=== PATIENT | male | born 1945 | race Caucasian/White ===

== ENCOUNTER → 2020-07-18 | Outpatient (CLI) | payer MEDICARE ==
[2020-07-18 10:38] LABS: Ionized Calcium 5.5 mg/dL (4.5-5.3)
[2020-07-19 09:10] LABS: African American GFR (CKD) 96.5 (60.0-200.0); Albumin 4.5 g/dL (3.80-4.90); Albumin/Globulin Ratio 1.96 (1.60-3.17); Anion Gap 14.3 mmol/L (4.00-12.00); BUN/Creat Ratio 13.33 Ratio (12.00-20.00); Calcium 9.8 mg/dL (8.7-10.3); Carbon Dioxide 22.7 mmol/L (21.6-31.8); Chol/HDL Ratio 4.17; Globulin 2.3 g/dL (1.6-3.3); LDL Cholesterol,Calculated 106.4 mg/dL (0.0-131.0); Non-African American GFR(CKD) 83.3 (60.0-200.0); Potassium 4.4 mmol/L (3.5-5.5); Total Bilirubin 0.4 mg/dL (0.2-1.2); Total Protein 6.8 g/dL (6.2-8.2); VLDL Calculation 45.6 mg/dL (5.00-40.00)
[2020-07-19 09:18] LABS: Prostate Specific Antigen 4.6 ng/mL (0.0-6.5)
== END | disposition home or self-care (01) ==
LOC: LABWHC1 09:37
PROVIDERS: ATTEND Internal Medicine
DX: E78.5 Hyperlipidemia, unspecified (principal); E83.52 Hypercalcemia; R74.8 Abnormal levels of other serum enzymes; Z12.5 Encounter for screening for malignant neoplasm of prostate
CPT/HCPCS: 36415; 80053; 80061; 82306; 82330; 83970; 84080; 84153

== ENCOUNTER → 2021-03-27 | Outpatient (CLI) | payer MEDICARE ==
[2021-03-27 18:54] LABS: HGB 14.4 g/dL (13.0-17.0); MCH 33.3 pg (27.0-32.0); MCHC 34.3 g/dL (32.0-37.0); MCV 97.2 fL (80.0-97.0); Mean Platelet Volume 10.2 fL (9.5-12.2); Platelet Count 474 X 10*3/uL (140-440); RBC 4.32 X 10*6/uL (4.40-5.60); RDW 12.9 % (11.5-14.5); WBC 10.12 X 10*3/uL (4.50-10.00)
[2021-03-27 19:28] LABS: Basophils # (A) 0.05 X 10*3/uL (0.00-0.10); Basophils % (A) 0.5 %; Eosinophils # (A) 0.58 X 10*3/uL (0.04-0.35); Eosinophils % (A) 5.7 %; Lymphocytes # (A) 2.73 X 10*3/uL (0.90-5.00); Monocytes # (A) 1.59 X 10*3/uL (0.20-1.00); Monocytes % (A) 15.7 %; Neutrophils # (A) 5.11 X 10*3/uL (1.80-7.70); Neutrophils % (A) 50.5 %
[2021-03-27 19:29] LABS: ALT 21 U/L (10-49); AST 20 U/L (14-35); African American GFR (CKD) 99.6 (60.0-200.0); Albumin 4.2 g/dL (3.8-4.9); Albumin/Globulin Ratio 1.67 (1.60-3.17); Alkaline Phosphatase 192 U/L (41-126); BUN/Creat Ratio 12.94 Ratio (12.00-20.00); Blood Urea Nitrogen 10.6 mg/dL (9.0-27.0); Calcium 9.8 mg/dL (8.7-10.3); Chloride 101 mmol/L (96-109); Chol/HDL Ratio 4.18 Ratio; Creatine Kinase 46 U/L (35-257); Globulin 2.5 g/dL (1.6-3.3); Glucose 122 mg/dL (70-110); LDL Cholesterol,Calculated 101.7 mg/dL (0.0-131.0); Non-African American GFR(CKD) 85.9 (60.0-200.0); Potassium 4.9 mmol/L (3.5-5.5); Sodium 137 mmol/L (135-145); Total Protein 6.7 g/dL (6.2-8.2)
== END | disposition home or self-care (01) ==
LOC: LABWHC1 13:25
PROVIDERS: ATTEND Family Medicine
DX: I10 Essential (primary) hypertension (principal); N40.1 Benign prostatic hyperplasia with lower urinary tract symptoms; E78.00 Pure hypercholesterolemia, unspecified
CPT/HCPCS: 36415; 80053; 80061; 82550; 84153; 85025